=== PATIENT | female | born 1990 | race African-American/Black ===

== ENCOUNTER 2016-11-17 20:08 | Emergency (ER) ==
[2016-11-17 22:31] LABS: URINE SOURCE CLEAN CATCH
[2016-11-17 22:56] LABS: MANUAL DIFF NEEDED? NO
[2016-11-17 23:03] LABS: BILIRUBIN URINE NEGATIVE (NEGATIVE); BLOOD URINE 1+ (NEGATIVE); CLARITY CLEAR (CLEAR); COLOR YELLOW; GLUCOSE URINE NEGATIVE (NEGATIVE); LEUKOCYTES URINE TRACE (NEGATIVE); NITRITE URINE NEGATIVE (NEGATIVE); PROTEIN URINE NEGATIVE (NEGATIVE); UROBILINOGEN URINE NORMAL
[2016-11-17 23:05] LABS: URINE CULTURE PL NEEDED? YES; URINE EPITHELIAL CELLS <10 /HPF (<10); URINE RBC <10 /HPF (<10); URINE WBC <10 /HPF (<10)
[2016-11-17 23:09] LABS: AGAP 10; BUN 8 mg/dL (8-22); CALCIUM 9.5 mg/dL (8.8-10.2); CHLORIDE 99 mmol/L (98-107); COSMO 262; POTASSIUM 4.1 mmol/L (3.5-5.1); SODIUM 132 mmol/L (136-145); TCO2 23 mmol/L (25-35)
[2016-11-17] MEDS ORDERED: PHENERGAN IV ONE (23:30)
[2016-11-17] MEDS ORDERED: LOMOTIL PO ONE (23:30)
[2016-11-17] MEDS ORDERED: SODIUM CHLORIDE 0.9% INJ ONE (23:30)
[2016-11-17] MEDS ORDERED: LR 1,000 ML IV PRN (23:30)
[2016-11-17 23:52] LABS: BASO% 0.2 % (0.0-0.8); EOS# 0.25 X1000 (0.0-0.7); EOS% 3.8 % (0.0-10.0); HEMATOCRIT 35.6 % (37.0-47.0); HEMOGLOBIN 11.8 g/dL (12.0-16.0); IMM GRAN# 0.01 X1000 (0.0-0.04); IMM GRAN% 0.2 % (0.0-0.5); LYMPH# 1.52 X1000 (1.2-3.4); LYMPH% 23.2 % (20.5-51.1); MCH 27.3 PG (27-31); MCHC 33.1 g/dL (33-37); MCV 82.2 FL (81-99); MONO# 0.41 X1000 (0.11-0.59); MONO% 6.3 % (1.7-9.3); NEUT% 66.3 % (42.2-75.2); PLT 344 X1000 (130-400); RBC 4.33 XMIL (4.2-5.4)
--- NOTE | 2016-11-17 23:52 | PROVIDER DOCUMENTATION ---
HPI-General Adult - General Chief Complaint: N/V/D Stated Complaint: N,WEAKNESS,ABD PAIN-6WKS PREG Time Seen by Provider: 11/17/16 23:29 Allergies/Adverse Reactions: Patient Allergies Allergy/AdvReac Type Severity Reaction Status Date / Time No Known Allergies Allergy Verified 10/25/16 19:49 Home Medications: Balsalazide Disodium 750 mg PO TID 08/30/16 - History of Present Illness -Gen Adult Nature of Presenting Problems: 26 YOBLKF WITH HX OF COLITIS, PRESENTS TO ED WITH C/O PT STATES SHE HAS HAD N/V/ D X 1 WEEK. PT STATES SHE HAS BLOODY DIARRHEA. PT STATES THERE IS NO OTHER SICKNESS IN THE HOUSE. Location of Pain/Injury: reports: abdomen Pain Radiation: reports: no radiation Quality of Pain: reports: aching Severity: reports: moderate Onset/Duration: reports: 1 week ago Timing: reports: still present Context/Activities at Onset: reports: light activity Modifying Factors: improves with: nothing Associated Symptoms: reports: diarrhea, nausea, vomiting Similar Symptoms Previously?: No Recently seen or treated by another doctor?: No Review of Systems - Adult - REVIEW OF SYSTEMS - ADULT Constitutional: denies: chills, fever Eyes: reports: no symptoms reported Ears, Nose, Mouth & Throat: reports: no symptoms reported Cardiovascular: denies: chest pain, palpitations, syncope Respiratory: denies: cough, shortness of breath, wheezing Gastrointestinal: reports: abdominal pain, diarrhea, nausea, vomiting Genitourinary: reports: no symptoms reported Musculoskeletal: denies: back pain, neck pain Integumentary: reports: no symptoms reported Neurological: denies: dizziness/vertigo, headache/migraines, syncope Psychiatric: reports: no symptoms reported Endocrine: reports: no symptoms reported Hematologic/Lymphatic: reports: no symptoms reported Allergic/Immunologic: reports: no symptoms reported All Other Systems: Reviewed and Negative Past History - Adult - PAST MEDICAL HISTORY-ADULT Review of Records: reports: Nursing Assessment Review, Medications Reviewed Respiratory: reports: asthma 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) Psychiatric: reports: anxiety Other Conditions: reports: eczema - PRIOR SURGERIES/PROCEDURES Surgical/Procedure History: reports: , tonsillectomy - PRIOR HOSPITALIZATIONS Prior Hospitalizations: reports: for other non-related - IMMUNIZATION STATUS Childhood Immunizations: See Nurse Assessment Flu Vaccine: See Nurse Assessment - FAMILY HISTORY Family History: reviewed, not pertinent - SOCIAL HISTORY Living Situation: family Physical Exam-General - CONSTITUTIONAL General Appearance: alert, mild distress - EYES Eyes: PERRL/EOMI, pink conjunctivae - HEAD, EARS, NOSE, MOUTH & THROAT HENMT: normocephalic/atraumatic, moist mucous membranes - NECK Neck: non-tender, full range of motion, supple - RESPIRATORY Respiratory: chest non-tender, lungs clear, normal breath sounds - CARDIOVASCULAR Cardiovascular: normal peripheral pulses, regular rate, rhythm - GASTROINTESTINAL (ABDOMEN) Abdominal Exam: soft, tenderness, other (HYPERACTIVE BOWEL SOUNDS.) - LYMPHATIC Lymphatic: no adenopathy - MUSCULOSKELETAL Back Exam: normal inspection, no CVA tenderness, no vertebral tenderness Extremity: normal range of motion, non-tender - SKIN Integumentary: normal color, normal turgor, warm/dry - NEUROLOGIC Neurologic: grossly normal - PSYCHIATRIC Psych/Mental Status: oriented x 3 Progress - PLAN OF CARE/RESULTS Progress/Plan/Lab Results: Laboratory Tests 11/17/16 11/17/16 11/17/16 22:20 22:20 23:40 WBC 6.54 RBC 4.33 Hgb 11.8 L Hct 35.6 L MCV 82.2 MCH 27.3 MCHC 33.1 RDW Std Deviation 13.2 Plt Count 344 MPV 10.0 Immature Gran % (Auto) 0.2 Neut % (Auto) 66.3 Lymph % (Auto) 23.2 Spencer % (Auto) 6.3 Eos % (Auto) 3.8 Baso % (Auto) 0.2 Immature Gran # (Auto) 0.01 Neut # (Auto) 4.34 Lymph # (Auto) 1.52 Spencer # (Auto) 0.41 Eos # (Auto) 0.25 Baso # (Auto) 0.01 Sodium 132 L Potassium 4.1 Chloride 99 Carbon Dioxide 23 L Anion Gap 10 BUN 8 Creatinine 0.7 Estimated GFR/1.73 m2 > 60 BUN/Creatinine Ratio 11 Glucose 87 Calculated Osmolality 262 Calcium 9.5 Total Bilirubin Direct Bilirubin AST ALT Alkaline Phosphatase Total Protein Albumin Globulin Albumin/Globulin Ratio Urine Source CLEAN CATCH Urine Color YELLOW Urine Clarity CLEAR Urine pH 5.0 Ur Specific Red [place] 1.020 Urine Protein NEGATIVE Urine Ketones 2+(Moderate) A Urine Blood 1+ A Urine Nitrite NEGATIVE Urine Bilirubin NEGATIVE Urine Urobilinogen NORMAL Urine Microscopic RBC <10 Urine WBC TRACE A Urine Microscopic WBC <10 Ur Epithelial Cells <10 Urine Bacteria 2+ Urine Glucose NEGATIVE 11/17/16 23:40 WBC RBC Hgb Hct MCV MCH MCHC RDW Std Deviation Plt Count MPV Immature Gran % (Auto) Neut % (Auto) Lymph % (Auto) Spencer % (Auto) Eos % (Auto) Baso % (Auto) Immature Gran # (Auto) Neut # (Auto) Lymph # (Auto) Spencer # (Auto) Eos # (Auto) Baso # (Auto) Sodium Potassium Chloride Carbon Dioxide Anion Gap BUN Creatinine Estimated GFR/1.73 m2 BUN/Creatinine Ratio Glucose Calculated Osmolality Calcium Total Bilirubin 0.30 Direct Bilirubin < 0.20 AST 12 ALT 10 Alkaline Phosphatase 83 Total Protein 7.3 Albumin 4.0 Globulin 3.0 Albumin/Globulin Ratio 1.0 Urine Source Urine Color Urine Clarity Urine pH Ur Specific Red [place] Urine Protein Urine Ketones Urine Blood Urine Nitrite Urine Bilirubin Urine Urobilinogen Urine Microscopic RBC Urine WBC Urine Microscopic WBC Ur Epithelial Cells Urine Bacteria Urine Glucose Orders Category Date Time Status BASIC METABOLIC PANEL [CHEM] Stat Lab 11/17/16 23:40 Completed CBC WITH DIFF [HEME] Stat Lab 11/17/16 22:20 Completed HEPATIC FUNCTION [CHEM] Stat Lab 11/17/16 23:[address] W/POSS RFLX CULT [URINALYSIS] Stat Lab 11/17/16 22:20 Completed URINE CULTURE [RM] Routine Lab 11/17/16 23:05 Ordered Diphenoxylate/Atropine [Lomotil] Med 11/17/16 23:30 Discontinued 2 each PO NOW ONE Lactated Ringers Inj [Lr] 1,000 ml Med 11/17/16 23:30 Active IV 500 mls/hr Promethazine [Phenergan] Med 11/17/16 23:30 Discontinued 25 mg IV NOW ONE Sodium Chloride 0.9% Med 11/17/16 23:30 Discontinued 10 ml INJ NOW ONE Vital Signs - 24 hr 11/17/16 21:13 Temperature 97.7 F Pulse Rate 94 H Respiratory 18 Rate Blood Pressure 113/65 O2 Sat by Pulse 100 Oximetry Departure - Departure Time of Disposition Order: 00:47 DIAGNOSIS: Gastroenteritis Disposition: HOME 01 Certified Medical Emergency: Emergent Condition: Fair Additional Instructions: ED Follow Up Instructions: You have been treated by a care provider in the Emergency Department. These instructions are being provided to you so you can have an understanding of how to care for yourself upon discharge. Upon discharge from the Emergency Department, you are responsible for making arrangements for follow-up care by a physician of your choice. Take all prescribed medications as directed. Return to the Emergency Department immediately for any new or worsening symptoms. You may call the Physician Referral phone number at [phone] to obtain a list of Physicians who are taking new patients. Prescriptions: Diphenoxylate/Atropine [Lomotil] 1 - 2 each PO Q6H PRN PRN #20 tablet PRN Reason: Diarrhea Promethazine [Phenergan] 1 - 2 tab PO Q6H PRN PRN #18 tablet PRN Reason: Vomiting Ondansetron HCl [Zofran] 1 - 2 tab PO Q6H PRN PRN #30 tablet PRN Reason: Vomiting Referrals: Abad Riggs MD [STAFF PHYSICIAN] - None,PCP [Primary Care Provider] - Forms: Return to School/Parent Work Attestation - Scribe Verification/Attestation Scribe:: Conner Thurman Acting as Scribe for:: Marck Armstrong Scribe documention review:: This chart was documented by a scribe and accurately reflects the service the provider performed and the decisions made by the provider.
[2016-11-18 00:28] LABS: ALKALINE PHOSPHATASE 83 U/L (32-104); DIRECT BILIRUBIN < 0.20 mg/dL (0.00-0.20); GOT 12 U/L (10-30); GPT 10 U/L (10-36); TOTAL PROTEIN 7.3 g/dL (6.3-8.3)
[2016-11-18] MEDS ORDERED: BENADRYL IV ONE (00:54)
[2016-11-18 01:56] VITALS: BP 104/77
== END 2016-11-18 01:55 | disposition home or self-care (01) ==
LOC: P.ED 20:08
DX: K52.9 Noninfective gastroenteritis and colitis, unspecified (principal); R19.7 Diarrhea, unspecified; R11.2 Nausea with vomiting, unspecified; R10.9 Unspecified abdominal pain; K51.90 Ulcerative colitis, unspecified, without complications; Z79.899 Other long term (current) drug therapy
CPT/HCPCS: 80048; 80076; 81001; 85025; 87088; 96361; 96374; 96375; J1200; J2550; J7120

== ENCOUNTER 2016-11-24 14:29 | Emergency (ER) ==
[2016-11-24 14:38] VITALS: BP 103/67
[2016-11-24] MEDS ORDERED: ALBUTEROL NEB INH ONE ×2 (14:43→14:46)
--- NOTE | 2016-11-24 14:47 | PROVIDER DOCUMENTATION ---
HPI-Respiratory General - General Source: patient - History of Present Illness-Resp Severity in ED: reports: moderate Onset/Duration: reports: gradual, this morning (0500) Timing: reports: still present, constant Episode Frequency: occasional episodes Current Respiratory Medication Therapy: Initiated see nurses note Associated Symptoms: reports: cough, fever/chills (subjective fever no chills), shortness of breath, short of breath, wheezing. denies: chest pain/soreness, dizziness, flu-like symptoms, nasal congestion, nasal drainage Similar Symptoms Previously?: Yes Recently seen or treated by another doctor?: No <Yong Canales - Last Filed: 11/24/16 14:47> <Viridiana Washington - Last Filed: 11/24/16 15:50> - General Chief Complaint: Asthma Attack Stated Complaint: SOB Time Seen by Provider: 11/24/16 14:40 Allergies/Adverse Reactions: Patient Allergies Allergy/AdvReac Type Severity Reaction Status Date / Time No Known Allergies Allergy Verified 10/25/16 19:49 Home Medications: Balsalazide Disodium 750 mg PO TID 08/30/16 - History of Present Illness-Resp Nature of Presenting Problem: patient is a 26 y/o F that presents with shortness of breath, wheezing, and cough that began this morning. patient has asthma but didn't take a breathing treatment due to the fact she is and wasn't for sure how it will effect the baby. patient denies any fever/chills, abdominal pain, or chest pain. She is , she is a G 3 P 1 AB 1. (Yong Canales) Review of Systems - Adult - REVIEW OF SYSTEMS - ADULT Constitutional: denies: chills, fever Eyes: denies: blurred vision, double vision Ears, Nose, Mouth & Throat: denies: ear pain, sinus problem, throat pain, throat swelling Cardiovascular: denies: chest pain, palpitations, syncope Respiratory: reports: cough, shortness of breath, wheezing. denies: excessive sputum production Gastrointestinal: denies: hematemesis, diarrhea, nausea, vomiting Genitourinary: reports: no symptoms reported Musculoskeletal: denies: back pain, joint pain, joint swelling, neck pain Integumentary: reports: no symptoms reported Neurological: denies: dizziness/vertigo, headache/migraines Psychiatric: reports: no symptoms reported Endocrine: reports: no symptoms reported Hematologic/Lymphatic: reports: no symptoms reported Allergic/Immunologic: reports: no symptoms reported All Other Systems: Reviewed and Negative <Yong Canales - Last Filed: 11/24/16 14:47> Past History - Adult - PAST MEDICAL HISTORY-ADULT Review of Records: reports: Old Records Reviewed, Nursing Assessment Review, Medications Reviewed Respiratory: reports: asthma Gastrointestinal: reports: colitis Other Conditions: reports: eczema - PRIOR SURGERIES/PROCEDURES Surgical/Procedure History: reports: , tonsillectomy, orthopedic ( extremity) - IMMUNIZATION STATUS Childhood Immunizations: See Nurse Assessment Flu Vaccine: See Nurse Assessment - SOCIAL HISTORY Smoking: quit greater than 1 year, cigarettes Living Situation: family <Yong Canales - Last Filed: 11/24/16 14:47> - PAST MEDICAL HISTORY-ADULT Major Childhood Illnesses: reports: denies history Cardiovascular: reports: denies history Respiratory: reports: asthma 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) Obstetrical/Gynecological: reports: denies history Genitourinary: reports: denies history Musculoskeletal: reports: denies history Neurological: reports: denies history Psychiatric: reports: anxiety Endocrine/Immune: reports: denies history Other Conditions: reports: eczema - PRIOR SURGERIES/PROCEDURES Surgical/Procedure History: reports: , tonsillectomy - PRIOR HOSPITALIZATIONS Prior Hospitalizations: reports: for other non-related - IMMUNIZATION STATUS Childhood Immunizations: See Nurse Assessment Flu Vaccine: See Nurse Assessment - FAMILY HISTORY Family History: reviewed, not pertinent <Viridiana Washington - Last Filed: 11/24/16 15:50> Physical Exam-General - PHYSICAL EXAM-ADULT Initial Vital Signs Reviewed: Yes - CONSTITUTIONAL General Appearance: alert, no apparent distress - EYES Eyes: PERRL/EOMI, pink conjunctivae - HEAD, EARS, NOSE, MOUTH & THROAT HENMT: normocephalic/atraumatic, moist mucous membranes, normal ENT inspection - NECK Neck: non-tender, full range of motion, normal inspection - RESPIRATORY Respiratory: no respiratory distress, no accessory muscle use, wheezing - CARDIOVASCULAR Cardiovascular: no gallop, no murmur, tachycardia - GASTROINTESTINAL (ABDOMEN) Abdominal Exam: normal bowel sounds, non tender, soft, no organomegaly, no pulsatile mass - MUSCULOSKELETAL Back Exam: no CVA tenderness, no vertebral tenderness Extremity: normal range of motion, normal inspection, no pedal edema - SKIN Integumentary: normal color, normal turgor, warm/dry - NEUROLOGIC Neurologic: grossly normal, no motor/sensory deficits - PSYCHIATRIC Psych/Mental Status: normal mood/affect, normal thought content, normal thought process, oriented x 3 <Yong Canales - Last Filed: 11/24/16 14:47> Progress <Yong Canales - Last Filed: 11/24/16 14:47> - REASSESSMENT Reassessment #1 Time Reassessed: 15:04 (Still present after first dose, no longer wheezing after second dose. ) Status: improving <Viridiana Washington - Last Filed: 11/24/16 15:50> - PLAN OF CARE/RESULTS Progress/Plan/Lab Results: Vital Signs Temp Pulse Resp BP Pulse Ox 11/24/16 14:55 114 H 36 H 11/24/16 14:32 98.9 F 114 H 24 103/67 98 No Known Allergies Allergy (Verified 10/25/16 19:49) Balsalazide Disodium 750 mg PO TID 08/30/16 Diphenoxylate/Atropine [Lomotil] 1 - 2 each PO Q6H PRN PRN #20 tablet 11/18/16 Ondansetron HCl [Zofran] 1 - 2 tab PO Q6H PRN PRN #30 tablet 11/18/16 Promethazine [Phenergan] 1 - 2 tab PO Q6H PRN PRN #18 tablet 11/18/16 Laboratory 11/24/16 15:19 Influenza A (Rapid) NEGATIVE Influenza B (Rapid) NEGATIVE Orders Category Date Time Status INFLUENZA SCREEN PL Stat Lab 11/24/16 15:19 Completed Albuterol [Albuterol Neb] Med 11/24/16 14:43 Discontinued 2.5 mg INH NOW ONE Albuterol [Albuterol Neb] Med 11/24/16 14:46 Discontinued 2.5 mg INH NOW ONE Aerosol Treatments Routine Oth 11/24/16 14:43 Completed Aerosol Treatments Routine Oth 11/24/16 14:46 Completed Aerosol Treatments Stat Oth 11/24/16 14:43 Completed Aerosol Treatments Stat Oth 11/24/16 14:46 Completed (Viridiana Washington) Departure <Yong Canales - Last Filed: 11/24/16 14:47> - Departure Time of Disposition Order: 15:50 Certified Medical Emergency: Emergent <Viridiana Washington - Last Filed: 11/24/16 15:50> - Departure DIAGNOSIS: Asthma exacerbation Disposition: HOME 01 Condition: Stable Additional Instructions: follow up with your primary care physician and the vehicle modification technician ED Follow Up Instructions: You have been treated by a care provider in the Emergency Department. These instructions are being provided to you so you can have an understanding of how to care for yourself upon discharge. Upon discharge from the Emergency Department, you are responsible for making arrangements for follow-up care by a physician of your choice. Take all prescribed medications as directed. Return to the Emergency Department immediately for any new or worsening symptoms. You may call the Physician Referral phone number at [phone] to obtain a list of Physicians who are taking new patients. Referrals: None,PCP [Primary Care Provider] - Attestation - Scribe Verification/Attestation Scribe:: Yong Canales Acting as Scribe for:: Viridiana Washington Scribe documention review:: This chart was documented by a scribe and accurately reflects the service the provider performed and the decisions made by the provider. - Physician/ Mid-level Attestation Patient care was provided by Mid-level provider (BOW REHAIRER/PA):: Yes Mid-level provider:: Viridiana Washington Mid-level documentation review:: The Mid-level provider documentation, treatment plan and medical decision making was reviewed by the physician who agrees with all treatment and medical decision making by the MLP. <Yong Canales - Last Filed: 11/24/16 14:47> - Physician/ Mid-level Attestation Patient care was provided by Mid-level provider (BOW REHAIRER/PA):: Yes Mid-level provider:: Viridiana Washington Mid-level documentation review:: The Mid-level provider documentation, treatment plan and medical decision making was reviewed by the physician who agrees with all treatment and medical decision making by the MLP. <Viridiana Washington - Last Filed: 11/24/16 15:50> Physician Attestation
== END 2016-11-24 15:55 | disposition home or self-care (01) ==
LOC: P.ED 14:29
DX: J45.901 Unspecified asthma with (acute) exacerbation (principal); R06.02 Shortness of breath; R06.2 Wheezing; R05 Cough; R00.0 Tachycardia, unspecified; K52.9 Noninfective gastroenteritis and colitis, unspecified; Z79.899 Other long term (current) drug therapy
CPT/HCPCS: 87804; 94640; 99283

== ENCOUNTER 2017-01-17 09:40 | Emergency (ER) ==
[2017-01-17 10:17] LABS: MANUAL DIFF NEEDED? NO
[2017-01-17 10:23] LABS: BASO% 0.1 % (0.0-0.8); EOS# 0.25 X1000 (0.0-0.7); EOS% 3.7 % (0.0-10.0); HEMATOCRIT 33.4 % (37.0-47.0); HEMOGLOBIN 11.1 g/dL (12.0-16.0); IMM GRAN# 0.02 X1000 (0.0-0.04); IMM GRAN% 0.3 % (0.0-0.5); LYMPH# 1.23 X1000 (1.2-3.4); LYMPH% 18.4 % (20.5-51.1); MCH 27.2 PG (27-31); MCHC 33.2 g/dL (33-37); MCV 81.9 FL (81-99); MONO# 0.31 X1000 (0.11-0.59); MONO% 4.6 % (1.7-9.3); MPV 10.4 FL (7.4-10.4); NEUT% 72.9 % (42.2-75.2); PLT 292 X1000 (130-400); RBC 4.08 XMIL (4.2-5.4)
[2017-01-17 10:43] LABS: AGAP 11; ALBUMIN 3.5 g/dL (3.5-5.0); ALKALINE PHOSPHATASE 62 U/L (32-104); BUN 6 mg/dL (8-22); CALCIUM 9.4 mg/dL (8.8-10.2); CHLORIDE 103 mmol/L (98-107); COSMO 272; GOT 13 U/L (10-30); GPT 9 U/L (10-36); POTASSIUM 3.3 mmol/L (3.5-5.1); SODIUM 137 mmol/L (136-145); TCO2 24 mmol/L (25-35); TOTAL PROTEIN 6.3 g/dL (6.3-8.3)
[2017-01-17] MEDS ORDERED: OFIRMEV 1000 MG/ISOTONIC SOLN 100 ML IV ONE (10:44)
[2017-01-17] MEDS ORDERED: NS 1,000 ML IV ONE (10:44)
[2017-01-17] MEDS ORDERED: SODIUM CHLORIDE 0.9% INJ ONE (10:44)
[2017-01-17] MEDS ORDERED: PHENERGAN IV ONE (10:44)
[2017-01-17] MEDS ORDERED: ZOFRAN IV ONE (11:26)
[2017-01-17] MEDS ORDERED: ZOFRAN ONE (11:27)
[2017-01-17 13:08] LABS: URINE SOURCE CLEAN CATCH
[2017-01-17 13:15] LABS: BILIRUBIN URINE NEGATIVE (NEGATIVE); BLOOD URINE TRACE (NEGATIVE); CLARITY CLEAR (CLEAR); COLOR YELLOW; GLUCOSE URINE NEGATIVE (NEGATIVE); LEUKOCYTES URINE 1+ (NEGATIVE); NITRITE URINE NEGATIVE (NEGATIVE); PROTEIN URINE 1+(30 mg/dL) mg/dL (NEGATIVE); UROBILINOGEN URINE 1+(1 mg/dL)
[2017-01-17 13:25] LABS: URINE CULTURE PL NEEDED? YES; URINE EPITHELIAL CELLS >10 /HPF (<10)
--- NOTE | 2017-01-17 13:45 | PROVIDER DOCUMENTATION ---
HPI-Female /OB/Breast - General Chief Complaint: N/V/D Stated Complaint: Preg/n/v/d - abd pain Time Seen by Provider: 01/17/17 10:11 Source: reports: patient, family Allergies/Adverse Reactions: Patient Allergies Allergy/AdvReac Type Severity Reaction Status Date / Time No Known Allergies Allergy Verified 01/17/17 09:44 Home Medications: Home Medication List Medication Instructions Recorded Confirmed Last Taken Type Clotrimazole 1% Cream [Lotrimin 1% 1 applicatn TOP QHS #1 tube 01/17/17 Unknown Rx Cream] Nitrofurantoin Monohyd/M-Cryst 100 mg PO BID #14 capsule 01/17/17 Unknown Rx [Macrobid 100 mg Capsule] - History of Present Illness-Female /OB Nature of Presenting Problem: This pt, , and is currently 15wks , presents today c complaints of lower abdominal pains and cramping. she reports 1-2 episodes of vomiting but no diarrhea. She reports mild vaginal d/c but no bleeding. No fever, chills. No other issues or complaints. Location of complaint: reports: suprapubic Radiation: reports: none Quality of Pain: reports: aching, cramping Severity in ED: reports: moderate Onset/Duration: reports: last night Timing: reports: still present Vaginal Symptoms: reports: discharge Vaginal Bleeding Amount: None Urinary Symptoms: reports: no symptoms Related Symptoms: reports: abdominal pain Leakage of Fluid: none Sexual intercourse history: reports: Less Than 2 Months Ago, Single Partner Contraception: reports: none Similar Symptoms Previously?: No Recently seen or treated by another doctor?: Yes ([facility] WEIGHER) Review of Systems - Adult - REVIEW OF SYSTEMS - ADULT Constitutional: reports: no symptoms reported. denies: chills, fever Eyes: reports: no symptoms reported. denies: discharge, dry eyes Ears, Nose, Mouth & Throat: reports: no symptoms reported. denies: ear discharge, ear pain Cardiovascular: reports: no symptoms reported. denies: chest pain, edema Respiratory: reports: no symptoms reported. denies: chronic cough, cough Gastrointestinal: reports: abdominal pain, nausea, vomiting. denies: diarrhea, difficulty swallowing Genitourinary: reports: see HPI. denies: dysuria, discharge Musculoskeletal: reports: no symptoms reported. denies: bone pain, back pain Integumentary: reports: no symptoms reported. denies: hives, hair loss Neurological: reports: no symptoms reported. denies: ataxia, dizziness/vertigo Psychiatric: reports: no symptoms reported. denies: anxiety, anti-depressant use Endocrine: reports: no symptoms reported Hematologic/Lymphatic: reports: no symptoms reported Allergic/Immunologic: reports: no symptoms reported All Other Systems: Reviewed and Negative Past History - Adult - PAST MEDICAL HISTORY-ADULT Review of Records: reports: Old Records Reviewed, Nursing Assessment Review, Medications Reviewed, Social history reviewed & non-contributory. Major Childhood Illnesses: reports: denies history Cardiovascular: reports: denies history Respiratory: reports: asthma 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) Obstetrical/Gynecological: reports: denies history Genitourinary: reports: denies history Musculoskeletal: reports: denies history Neurological: reports: denies history Psychiatric: reports: anxiety Endocrine/Immune: reports: denies history Other Conditions: reports: eczema - PRIOR SURGERIES/PROCEDURES Surgical/Procedure History: reports: , tonsillectomy - PRIOR HOSPITALIZATIONS Prior Hospitalizations: reports: for other non-related - IMMUNIZATION STATUS Childhood Immunizations: See Nurse Assessment Flu Vaccine: See Nurse Assessment - FAMILY HISTORY Family History: reviewed, not pertinent Physical Exam-General - PHYSICAL EXAM-ADULT Initial Vital Signs Reviewed: Yes - CONSTITUTIONAL General Appearance: alert, mild distress - EYES Eyes: PERRL/EOMI, fundi clear, no AV nicking - HEAD, EARS, NOSE, MOUTH & THROAT HENMT: normocephalic/atraumatic, moist mucous membranes, normal ENT inspection - NECK Neck: non-tender, full range of motion, supple, normal inspection - RESPIRATORY Respiratory: chest non-tender, lungs clear, normal breath sounds, no pleuratic chest pain, no respiratory distress, no accessory muscle use. negative: respiratory distress, decreased breath sounds, accessory muscle use - CARDIOVASCULAR Cardiovascular: normal peripheral pulses, no edema, no gallop, no JVD, no murmur , tachycardia. negative: JVD, bradycardia - GASTROINTESTINAL (ABDOMEN) Abdominal Exam: normal bowel sounds, soft, no organomegaly, no pulsatile mass, tenderness (suprapubic). negative: abdominal bruit, abnormal bowel sounds, distended, guarding, rigid, rebound, McBurney's point tenderness, Sanders's sign - GENITOURINARY Female Genitalia/Pelvic Exam: no masses, discharge (minimal, white). negative: active bleeding, blood, cervicitis, herpes-like ulcerations, lesions, mass - MUSCULOSKELETAL Back Exam: normal inspection, no CVA tenderness, no vertebral tenderness Extremity: normal range of motion, non-tender, normal gait, normal inspection - SKIN Integumentary: normal color, normal turgor, warm/dry - NEUROLOGIC Neurologic: grossly normal, no motor/sensory deficits - PSYCHIATRIC Psych/Mental Status: normal mood/affect, normal thought content, normal thought process, oriented x 3 Progress - PLAN OF CARE/RESULTS Progress/Plan/Lab Results: Laboratory Tests 01/17/17 01/17/17 01/17/17 10:12 10:12 10:12 WBC 6.69 RBC 4.08 L Hgb 11.1 L Hct 33.4 L MCV 81.9 MCH 27.2 MCHC 33.2 RDW Std Deviation 14.9 H Plt Count 292 MPV 10.4 Immature Gran % (Auto) 0.3 Neut % (Auto) 72.9 Lymph % (Auto) 18.4 L Stearns % (Auto) 4.6 Eos % (Auto) 3.7 Baso % (Auto) 0.1 Immature Gran # (Auto) 0.02 Neut # (Auto) 4.87 Lymph # (Auto) 1.23 Stearns # (Auto) 0.31 Eos # (Auto) 0.25 Baso # (Auto) 0.01 Sodium 137 Potassium 3.3 L Chloride 103 Carbon Dioxide 24 L Anion Gap 11 BUN 6 L Creatinine 0.6 Estimated GFR/1.73 m2 > 60 BUN/Creatinine Ratio 10 Glucose 105 H Calculated Osmolality 272 Calcium 9.4 Total Bilirubin 0.20 AST 13 ALT 9 L Alkaline Phosphatase 62 Total Protein 6.3 Albumin 3.5 Globulin 3.0 Albumin/Globulin Ratio 1.0 Ser , Semi-Qnt 87726.0 Urine Source Urine Color Urine Clarity Urine pH Ur Specific [place] Urine Protein Urine Ketones Urine Blood Urine Nitrite Urine Bilirubin Urine Urobilinogen Urine Microscopic RBC Urine WBC Urine Microscopic WBC Ur Epithelial Cells Urine Bacteria Urine Yeast Urine Glucose 01/17/17 13:03 WBC RBC Hgb Hct MCV MCH MCHC RDW Std Deviation Plt Count MPV Immature Gran % (Auto) Neut % (Auto) Lymph % (Auto) Stearns % (Auto) Eos % (Auto) Baso % (Auto) Immature Gran # (Auto) Neut # (Auto) Lymph # (Auto) Stearns # (Auto) Eos # (Auto) Baso # (Auto) Sodium Potassium Chloride Carbon Dioxide Anion Gap BUN Creatinine Estimated GFR/1.73 m2 BUN/Creatinine Ratio Glucose Calculated Osmolality Calcium Total Bilirubin AST ALT Alkaline Phosphatase Total Protein Albumin Globulin Albumin/Globulin Ratio Ser , Semi-Qnt Urine Source CLEAN CATCH Urine Color YELLOW Urine Clarity CLEAR Urine pH 7.0 Ur Specific [place] 1.020 Urine Protein 1+(30 mg/dL) A Urine Ketones 3+(Large) A Urine Blood TRACE Urine Nitrite NEGATIVE Urine Bilirubin NEGATIVE Urine Urobilinogen 1+(1 mg/dL) Urine Microscopic RBC Not Reportable Urine WBC 1+ A Urine Microscopic WBC 10-20 A Ur Epithelial Cells >10 A Urine Bacteria 3+ Urine Yeast PRESENT Urine Glucose NEGATIVE Orders Category Date Time Status Saline Loc NOW Care 01/17/17 10:11 Active US OBS COMPLETE > 14 WKS [] Stat Exams 01/17/17 09:55 Taken CBC WITH DIFF [HEME] Stat Lab 01/17/17 10:12 Completed CHLAMYDIA AND GC BY PCR URINE [CUBA] Stat Lab 01/17/17 13:03 Received COMPREHENSIVE METABOLIC PANEL [CHEM] Stat Lab 01/17/17 10:12 Completed QUANT TEST Stat Lab 01/17/17 10:12 Completed RHOGAM WORKUP [BBK] Stat Lab 01/17/17 11:[address] W/POSS RFLX CULT [URINALYSIS] Stat Lab 01/17/17 13:03 Completed URINE CULTURE [RM] Routine Lab 01/17/17 13:25 Ordered 0.9% Sodium Chloride Inj [Ns] 1,000 ml Med 01/17/17 10:44 Discontinued IV 999 mls/hr Acetaminophen [Ofirmev 1000 mg/Isotonic Soln] 100 ml Med 01/17/17 10:44 Discontinued IV NOW Ondansetron [Zofran] Med 01/17/17 11:27 Discontinued 4 mg .ROUTE .STK-MED ONE Ondansetron [Zofran] Med 01/17/17 11:26 Discontinued 4 mg IV NOW ONE Promethazine [Phenergan] Med 01/17/17 10:44 Discontinued 12.5 mg IV NOW ONE Sodium Chloride 0.9% Med 01/17/17 10:44 Discontinued 10 ml INJ NOW ONE Vital Signs Temp Pulse Resp BP Pulse Ox 01/17/17 11:30 103 H 20 105/67 100 01/17/17 09:41 97.9 F 110 H 18 104/69 97 No Known Allergies Allergy (Verified 01/17/17 09:44) No Home Medications 01/17/17 Laboratory 01/17/17 01/17/17 01/17/17 13:03 10:12 10:12 WBC 6.69 RBC 4.08 L Hgb 11.1 L Hct 33.4 L MCV 81.9 MCH 27.2 MCHC 33.2 RDW Std Deviation 14.9 H Plt Count 292 MPV 10.4 Immature Gran % (Auto) 0.3 Neut % (Auto) 72.9 Lymph % (Auto) 18.4 L Stearns % (Auto) 4.6 Eos % (Auto) 3.7 Baso % (Auto) 0.1 Immature Gran # (Auto) 0.02 Neut # (Auto) 4.87 Lymph # (Auto) 1.23 Stearns # (Auto) 0.31 Eos # (Auto) 0.25 Baso # (Auto) 0.01 Sodium 137 Potassium 3.3 L Chloride 103 Carbon Dioxide 24 L Anion Gap 11 BUN 6 L Creatinine 0.6 Estimated GFR/1.73 m2 > 60 BUN/Creatinine Ratio 10 Glucose 105 H Calculated Osmolality 272 Calcium 9.4 Total Bilirubin 0.20 AST 13 ALT 9 L Alkaline Phosphatase 62 Total Protein 6.3 Albumin 3.5 Globulin 3.0 Albumin/Globulin Ratio 1.0 Ser , Semi-Qnt Urine Source CLEAN CATCH Urine Color YELLOW Urine Clarity CLEAR Urine pH 7.0 Ur Specific [place] 1.020 Urine Protein 1+(30 mg/dL) A Urine Ketones 3+(Large) A Urine Blood TRACE Urine Nitrite NEGATIVE Urine Bilirubin NEGATIVE Urine Urobilinogen 1+(1 mg/dL) Urine Microscopic RBC Not Reportable Urine WBC 1+ A Urine Microscopic WBC 10-20 A Ur Epithelial Cells >10 A Urine Bacteria 3+ Urine Yeast PRESENT Urine Glucose NEGATIVE 01/17/17 10:12 WBC RBC Hgb Hct MCV MCH MCHC RDW Std Deviation Plt Count MPV Immature Gran % (Auto) Neut % (Auto) Lymph % (Auto) Stearns % (Auto) Eos % (Auto) Baso % (Auto) Immature Gran # (Auto) Neut # (Auto) Lymph # (Auto) Stearns # (Auto) Eos # (Auto) Baso # (Auto) Sodium Potassium Chloride Carbon Dioxide Anion Gap BUN Creatinine Estimated GFR/1.73 m2 BUN/Creatinine Ratio Glucose Calculated Osmolality Calcium Total Bilirubin AST ALT Alkaline Phosphatase Total Protein Albumin Globulin Albumin/Globulin Ratio Ser , Semi-Qnt 43309.0 Urine Source Urine Color Urine Clarity Urine pH Ur Specific [place] Urine Protein Urine Ketones Urine Blood Urine Nitrite Urine Bilirubin Urine Urobilinogen Urine Microscopic RBC Urine WBC Urine Microscopic WBC Ur Epithelial Cells Urine Bacteria Urine Yeast Urine Glucose Pt is pain free and is feeling much better. Will tx and have her f/u c her OB/ CLAIMS VICE PRESIDENT. She has an appointment tomorrow. she and her family are in agreement. - ULTRASOUND (By Radiology) 1 US Study: Pelvic US Results: 15w4d normal IUP; FHR 153 Departure - Departure Time of Disposition Order: 13:44 DIAGNOSIS: Abdominal pain affecting , UTI (urinary tract infection) during , Vaginal yeast infection Disposition: HOME 01 Certified Medical Emergency: Emergent Condition: Good Additional Instructions: Take medication as prescribed. Follow up with your LORRY WEIGHER this week as scheduled. Return to the ER for any new or worsening symptoms. ED Follow Up Instructions: You have been treated by a care provider in the Emergency Department. These instructions are being provided to you so you can have an understanding of how to care for yourself upon discharge. Upon discharge from the Emergency Department, you are responsible for making arrangements for follow-up care by a physician of your choice. Take all prescribed medications as directed. Return to the Emergency Department immediately for any new or worsening symptoms. You may call the Physician Referral phone number at [phone] to obtain a list of Physicians who are taking new patients. Prescriptions: Clotrimazole 1% Cream [Lotrimin 1% Cream] 1 applicatn TOP QHS #1 tube Nitrofurantoin Monohyd/M-Cryst [Macrobid 100 mg Capsule] 100 mg PO BID #14 capsule Attestation - Physician/ ANGELA Attestation Patient care was provided by Advanced Practice Provider:: Yes Advanced Practice Provider:: Messi Albert Advanced Practice Provider documentation review:: The Mid-level provider documentation, treatment plan and medical decision making was reviewed by the physician who agrees with all treatment and medical decision making by the P.
[2017-01-17] MEDS ORDERED: PHENERGAN PO ONE (13:49)
--- NOTE | 2017-01-17 13:58 | Diag Imaging Result Document ---
PROCEDURE NAME: US OBS COMPLETE > 14 WKS - 01/17/2017 TRANSVAGINAL PELVIC ULTRASOUND: FINDINGS: There is an intrauterine with an estimated gestational age of 15 weeks 4 days plus or minus 8 days. heart rate is present at 153 beats per minute. No focal abnormality identified. The cervix is closed. Neither ovary is identified. No adnexal mass. No free fluid. The placenta is anterior. IMPRESSION: Intrauterine with an estimated gestational age of 15 weeks 4 days with heart rate of 153 beats per minute. A preliminary report was given at 12:17 p.m.
[2017-01-17 14:41] VITALS: BP 110/68
== END 2017-01-17 13:40 | disposition home or self-care (01) ==
LOC: P.ED 09:40
DX: O23.42 Unspecified infection of urinary tract in pregnancy, second trimester (principal); B37.3 Candidiasis of vulva and vagina; O98.812 Other maternal infectious and parasitic diseases complicating pregnancy, second trimester; O21.0 Mild hyperemesis gravidarum; Z3A.15 15 weeks gestation of pregnancy; O26.892 Other specified pregnancy related conditions, second trimester; R10.30 Lower abdominal pain, unspecified; R00.0 Tachycardia, unspecified; N89.8 Other specified noninflammatory disorders of vagina
CPT/HCPCS: 36415; 76805; 80053; 81001; 84702; 85025; 87088; 87491; 87591; 96361; 96374; 96375; J0131; J2405; J2550; J7030

== ENCOUNTER 2017-01-28 22:58 | Emergency (ER) ==
--- NOTE | 2017-01-29 01:17 | PROVIDER DOCUMENTATION ---
HPI-Female /OB/Breast - General Chief Complaint: Female Stated Complaint: 16 WKS-SPOTTING,PRESSURE Time Seen by Provider: 01/29/17 01:03 Source: reports: patient Allergies/Adverse Reactions: Patient Allergies Allergy/AdvReac Type Severity Reaction Status Date / Time No Known Allergies Allergy Verified 01/17/17 09:44 Home Medications: Home Medication List Medication Instructions Recorded Confirmed Last Taken Type Clotrimazole 1% Cream [Lotrimin 1% 1 applicatn TOP QHS #1 tube 01/17/17 Unknown Rx Cream] Nitrofurantoin Monohyd/M-Cryst 100 mg PO BID #14 capsule 01/17/17 Unknown Rx [Macrobid 100 mg Capsule] Nitrofurantoin Monohyd/M-Cryst 100 mg PO BID #14 capsule 01/29/17 Unknown Rx [Macrobid 100 mg Capsule] - History of Present Illness-Female /OB Nature of Presenting Problem: 26 yof 16 weeks c/o very light spotting in clothes and a little blood on toilet paper. Pt also has some pressure when sitting. Pt has been seeing her OB as scheduled and already had one normal ultrasound with them. Does patient report she is ?: Yes Location of complaint: reports: LLQ, vaginal Radiation: reports: none Quality of Pain: reports: pressure Severity in ED: reports: mild Onset/Duration: reports: 4-6 hours ago Timing: reports: still present, gone now Context/Activities at Onset: reports: light activity Vaginal Symptoms: reports: abnormal bleeding Vaginal Bleeding Amount: Spotting Urinary Symptoms: reports: no symptoms Related Symptoms: reports: vaginal bleeding, abdominal pain Leakage of Fluid: none Sexual intercourse history: reports: Greater Than 2 Months Ago Modifying Factors: improves with: nothing Associated Symptoms: reports: denies symptoms Similar Symptoms Previously?: No Recently seen or treated by another doctor?: No Review of Systems - Adult - REVIEW OF SYSTEMS - ADULT Constitutional: reports: see HPI. denies: no symptoms reported, chills, fever, fatique, night sweats, weight gain, weight loss, other Eyes: reports: no symptoms reported. denies: see HPI, discharge, dry eyes, decreased vision, blurred vision, double vision, eye pain, redness, other Ears, Nose, Mouth & Throat: reports: no symptoms reported. denies: see HPI, ear discharge, ear pain, hearing loss, tinnitus, epistaxis, sinus problem, nose pain, loose teeth, mouth/dental pain, mouth swelling, hoarseness, throat pain, throat swelling, other Cardiovascular: reports: no symptoms reported. denies: see HPI, chest pain, edema, heart murmur, irregular heart rate, orthopnea, palpitations, poor circulation, PND, syncope, other Respiratory: reports: no symptoms reported. denies: see HPI, chronic cough, cough, dyspnea on exertion, excessive sputum production, hemoptysis, pleurisy, shortness of breath, wheezing, other Gastrointestinal: reports: see HPI, abdominal pain. denies: no symptoms reported, hematemesis, constipation, diarrhea, difficulty swallowing, frequent heartburn, nausea, poor appetite, rectal bleeding, vomiting, other Genitourinary: reports: no symptoms reported. denies: see HPI, dysuria, discharge, frequency, flank pain, frequent UTI's, hematuria, hesitency, incontinence, urinary retention, urgency, other All Other Systems: Reviewed and Negative Past History - Adult - PAST MEDICAL HISTORY-ADULT Review of Records: reports: Old Records Reviewed, Nursing Assessment Review, Medications Reviewed, Social history reviewed & non-contributory. Major Childhood Illnesses: reports: denies history Cardiovascular: reports: denies history Respiratory: reports: asthma 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) Obstetrical/Gynecological: reports: denies history Genitourinary: reports: denies history Musculoskeletal: reports: denies history Neurological: reports: denies history Psychiatric: reports: anxiety Endocrine/Immune: reports: denies history Other Conditions: reports: eczema - PRIOR SURGERIES/PROCEDURES Surgical/Procedure History: reports: , tonsillectomy - PRIOR HOSPITALIZATIONS Prior Hospitalizations: reports: for other non-related - IMMUNIZATION STATUS Childhood Immunizations: See Nurse Assessment Flu Vaccine: See Nurse Assessment - FAMILY HISTORY Family History: reviewed, not pertinent Physical Exam-General - PHYSICAL EXAM-ADULT Initial Vital Signs Reviewed: Yes - CONSTITUTIONAL General Appearance: appears well, alert, no apparent distress. negative: mild distress, moderate distress, severe distress, cachetic, obese, thin, anxious, lethargic, slow to respond, obtunded, combative, other - EYES Eyes: PERRL/EOMI, pink conjunctivae. negative: fundi clear, no AV nicking, anisocoria, conjuctival exudate, EOM palsy, meningismus, pale conjunctivae, photophobia, sclera injected, scleral icterus, subconjunctival hemorrhage, sunken eyes, other - HEAD, EARS, NOSE, MOUTH & THROAT HENMT: normocephalic/atraumatic, moist mucous membranes, normal ENT inspection, TMs normal, pharynx normal. negative: angioedema, dental decay, hearing deficit , pharyngeal erythema, tonsillar exudate, TM abnormal, TM obscurred by cerumen, frontal tenderness, maxillary tenderness, other - NECK Neck: non-tender, full range of motion, supple, normal inspection. negative: Brudzinski's sign, carotid bruit, C-spine tenderness, limited range of motion, lymphadenopathy, meningismus, trachial deviation, tender lateral, tender midline , thyromegaly, other - RESPIRATORY Respiratory: chest non-tender, lungs clear, normal breath sounds, no pleuratic chest pain, no respiratory distress, no accessory muscle use. negative: respiratory distress, decreased breath sounds, accessory muscle use, crackles, rales, rhonchi, stridor, wheezing, dull on percussion, prolonged expiration, pain on inspiration, plerual rub, retractions, splinting, decreased rate, increased rate, crepitus, other - CARDIOVASCULAR Cardiovascular: normal peripheral pulses, regular rate, rhythm, no edema, no gallop, no JVD, no murmur. negative: JVD, bradycardia, tachycardia, diastolic murmur, systolic murmur, gallop/S3, gallop/S4, extra beats, friction rub, irregularly irregular, PMI displaced laterally, other - GASTROINTESTINAL (ABDOMEN) Abdominal Exam: normal bowel sounds, non tender, soft, no organomegaly, no pulsatile mass. negative: abdominal bruit, abnormal bowel sounds, distended, guarding, rigid, rebound, tenderness, hernia, mass, hepatomegaly, spleenomegaly , McBurney's point tenderness, Sanders's sign, obturator sign, prominent aortic pulsations, psoas, Rovsing's sign, other - GENITOURINARY Female Genitalia/Pelvic Exam: deferred - LYMPHATIC Lymphatic: no adenopathy - MUSCULOSKELETAL Back Exam: normal inspection, no CVA tenderness, no vertebral tenderness Extremity: normal range of motion, non-tender, normal gait, normal inspection, no pedal edema, no calf tenderness, normal capillary refill, pelvis stable. negative: abnormal NV exam, calf tenderness, deformity, erythema, inflammation, joint effusion, pulse deficit, pedal edema, slow capillary refill, swelling, tenderness, other - SKIN Integumentary: normal color, normal turgor, warm/dry - NEUROLOGIC Neurologic: grossly normal - PSYCHIATRIC Psych/Mental Status: oriented x 3 Progress - PLAN OF CARE/RESULTS Progress/Plan/Lab Results: Laboratory Tests 01/29/17 01:10 Urine Source Cancelled Urine Color YELLOW Urine Clarity CLEAR Urine Turbidity Cancelled Urine pH 6.0 Ur Specific [place] 1.020 Urine Protein NEGATIVE Ur Glucose (Stick) Cancelled Urine Ketones NEGATIVE Ur Ketones (Stick) Cancelled Urine Blood NEGATIVE Urine Nitrite NEGATIVE Urine Bilirubin NEGATIVE Urine Urobilinogen NORMAL Urobilinogen Dipstick Cancelled Urine Leukocytes Cancelled Urine WBC (Auto) Cancelled Urine RBC (Auto) Cancelled U Epithel Cells (Auto) Cancelled Urine Bacteria (Auto) Cancelled Urine Microscopic RBC <10 Urine WBC NEGATIVE Urine Microscopic WBC <10 Ur Epithelial Cells <10 Urine Bacteria 1+ Urine Glucose NEGATIVE Orders Category Date Time Status UA NIMS W/REFLEX CULT PL [URINALYSIS] Stat Lab 01/29/17 01:10 Completed Nitrofurantoin [place]/Macrocryst [Macrobid] Med 01/29/17 01:54 Once 100 mg PO NOW ONE Vital Signs Temp Pulse Resp BP Pulse Ox 01/28/17 23:26 98.4 F 103 H 18 117/76 100 No Known Allergies Allergy (Verified 01/17/17 09:44) Clotrimazole 1% Cream [Lotrimin 1% Cream] 1 applicatn TOP [facility] #1 tube 01/17/17 Nitrofurantoin Monohyd/M-Cryst [Macrobid 100 mg Capsule] 100 mg PO BID #14 capsule 01/17/17 Laboratory 01/29/17 01:10 Urine Source Cancelled Urine Color YELLOW Urine Clarity CLEAR Urine Turbidity Cancelled Urine pH 6.0 Ur Specific [place] 1.020 Urine Protein NEGATIVE Ur Glucose (Stick) Cancelled Urine Ketones NEGATIVE Ur Ketones (Stick) Cancelled Urine Blood NEGATIVE Urine Nitrite NEGATIVE Urine Bilirubin NEGATIVE Urine Urobilinogen NORMAL Urobilinogen Dipstick Cancelled Urine Leukocytes Cancelled Urine WBC (Auto) Cancelled Urine RBC (Auto) Cancelled U Epithel Cells (Auto) Cancelled Urine Bacteria (Auto) Cancelled Urine Microscopic RBC <10 Urine WBC NEGATIVE Urine Microscopic WBC <10 Ur Epithelial Cells <10 Urine Bacteria 1+ Urine Glucose NEGATIVE Departure - Departure Time of Disposition Order: 01:55 DIAGNOSIS: UTI (urinary tract infection) during Disposition: HOME 01 Certified Medical Emergency: Emergent Condition: Stable Additional Instructions: Call OB first thing this morning to schedule follow up. ED Follow Up Instructions: You have been treated by a care provider in the Emergency Department. These instructions are being provided to you so you can have an understanding of how to care for yourself upon discharge. Upon discharge from the Emergency Department, you are responsible for making arrangements for follow-up care by a physician of your choice. Take all prescribed medications as directed. Return to the Emergency Department immediately for any new or worsening symptoms. You may call the Physician Referral phone number at [phone] to obtain a list of Physicians who are taking new patients. Prescriptions: Nitrofurantoin Monohyd/M-Cryst [Macrobid 100 mg Capsule] 100 mg PO BID #14 capsule Referrals: None,PCP [Primary Care Provider] - Attestation - Physician/ ANGELA Attestation Patient care was provided by Advanced Practice Provider:: Yes Advanced Practice Provider:: Lai Sapp Advanced Practice Provider documentation review:: The Mid-level provider documentation, treatment plan and medical decision making was reviewed by the physician who agrees with all treatment and medical decision making by the MLP. Physician Attestation - Physician Attestation I, the provider, attest to the following statement:: Nito Onofre Physician documentation Attestation:: This documentation recorded by the scribe accurately reflects the service I personally performed and the decisions made by me.
[2017-01-29 01:52] LABS: BILIRUBIN URINE NEGATIVE (NEGATIVE); BLOOD URINE NEGATIVE (NEGATIVE); CLARITY CLEAR (CLEAR); COLOR YELLOW; GLUCOSE URINE NEGATIVE (NEGATIVE); LEUKOCYTES URINE NEGATIVE (NEGATIVE); NITRITE URINE NEGATIVE (NEGATIVE); PROTEIN URINE NEGATIVE (NEGATIVE); UROBILINOGEN URINE NORMAL
[2017-01-29 01:53] LABS: URINE CULTURE PL NEEDED? NO
[2017-01-29 01:54] LABS: URINE EPITHELIAL CELLS <10 /HPF (<10); URINE RBC <10 /HPF (<10); URINE SOURCE CLEAN CATCH; URINE WBC <10 /HPF (<10)
[2017-01-29] MEDS ORDERED: MACROBID PO ONE (01:54)
[2017-01-29 03:05] VITALS: BP 115/077
== END 2017-01-29 03:05 | disposition home or self-care (01) ==
LOC: P.ED 22:58
DX: O23.42 Unspecified infection of urinary tract in pregnancy, second trimester (principal); Z3A.16 16 weeks gestation of pregnancy; O26.891 Other specified pregnancy related conditions, first trimester; R10.32 Left lower quadrant pain; R10.2 Pelvic and perineal pain; K51.90 Ulcerative colitis, unspecified, without complications
CPT/HCPCS: 81001

== ENCOUNTER 2017-07-05 05:04 | Inpatient (IN) ==
--- NOTE | 2017-07-04 08:46 | HISTORY AND PHYSICAL ---
ADMITTING PHYSICIAN: Santosh Antoine MD. ADMITTING DIAGNOSIS: Term , for repeat section. SUMMARY: Ms. Elam is a 27-year-old, 3, para 1-0-1-1 who is at term gestation. Her blood type is A positive. Rubella immune. Hepatitis B surface antigen, HIV, and group B strep are negative. She does have sickle trait. Her first ended in a section. She is now at term gestation and is requesting a repeat . She does not desire tubal sterilization. She is therefore being admitted for repeat . PAST MEDICAL HISTORY: Patient has had previous C section. She has had tonsils and adenoids removed. She has had right knee arthroscopic surgery. She has a history of ulcerative colitis. She is sickle trait positive. CURRENT MEDICATIONS: vitamins. ALLERGIES: None. PHYSICAL EXAMINATION: GENERAL: Shows a well-developed, well-nourished female. VITAL SIGNS: Stable. She is afebrile. CARDIOVASCULAR: Regular rate and rhythm without murmurs, rubs, gallops. PULMONARY: Clear. BREASTS: No masses. ABDOMEN: Gravid. PELVIC: Cervix is closed. EXTREMITIES: There is 1+ edema. IMPRESSION: Term , for repeat section. PLAN: We will proceed with repeat . Risks, benefits, possible complications, and obstetrical indications have been discussed. cc: Santosh Antoine MD
[2017-07-05] MEDS ORDERED: KEFZOL 1 GM/D5W 1 GM/50 ML IVPB IV PRN (05:07)
[2017-07-05] MEDS ORDERED: SODIUM CHLORIDE 0.9% INJ ONE (05:10)
[2017-07-05] MEDS ORDERED: PEPCID IV ONE (05:10)
[2017-07-05] MEDS ORDERED: BICITRA PO ONE (05:10)
[2017-07-05] MEDS: LR 1,000 ML IV SCH ×2 (06:05→06:48)
[2017-07-05 06:32] LABS: URINE SOURCE VOIDED
[2017-07-05 06:33] LABS: MANUAL DIFF NEEDED? NO
[2017-07-05 06:37] LABS: BASO% 0.2 % (0.0-0.8); EOS# 0.98 X1000 (0.0-0.7); EOS% 17.1 % (0.0-10.0); HEMATOCRIT 32.1 % (37.0-47.0); HEMOGLOBIN 10.5 g/dL (12.0-16.0); IMM GRAN# 0.01 X1000 (0.0-0.04); IMM GRAN% 0.2 % (0.0-0.5); LYMPH# 1.03 X1000 (1.2-3.4); MCH 26.7 PG (27-31); MCHC 32.7 g/dL (33-37); MCV 81.7 FL (81-99); MONO# 0.37 X1000 (0.11-0.59); MONO% 6.5 % (1.7-9.3); MPV 10.8 FL (7.4-10.4); PLT 280 X1000 (130-400); RBC 3.93 XMIL (4.2-5.4)
[2017-07-05 06:44] LABS: BILIRUBIN URINE NEGATIVE (NEGATIVE); BLOOD URINE NEGATIVE (NEGATIVE); CLARITY SL. CLOUDY (CLEAR); COLOR YELLOW; GLUCOSE URINE NEGATIVE (NEGATIVE); LEUKOCYTES URINE NEGATIVE (NEGATIVE); NITRITE URINE NEGATIVE (NEGATIVE); PROTEIN URINE NEGATIVE (NEGATIVE); UR AMPHETAMINES QUAL NONE DETECTED (NONE DETECT); UR BARBITUATES QUAL NONE DETECTED (NONE DETECT); UR BENZODIAZEPIN QUAL NONE DETECTED (NONE DETECT); UR CANNABINOIDS QUAL NONE DETECTED (NONE DETECT); UR COCAINE QUAL NONE DETECTED (NONE DETECT); UR MDMA QUAL NONE DETECTED (NONE DETECT); UR METHADONE QUAL NONE DETECTED (NONE DETECT); UR METHAMPHETAMINE QUAL NONE DETECTED (NONE DETECT); UR OPIATES QUAL NONE DETECTED (NONE DETECT); UR OXYCODONE QUAL NONE DETECTED (NONE DETECT); UR PCP QUAL NONE DETECTED (NONE DETECT); UR TCA QUAL NONE DETECTED (NONE DETECT); UROBILINOGEN URINE NORMAL
[2017-07-05] MEDS ORDERED: TORADOL ONE (06:46)
[2017-07-05] MEDS ORDERED: ZOFRAN ONE (06:46)
[2017-07-05] MEDS ORDERED: PITOCIN ONE (06:46)
[2017-07-05] MEDS ORDERED: DURAMORPH ONE (07:04)
[2017-07-05] MEDS ORDERED: NEO-SYNEPHRINE ONE (07:51)
[2017-07-05] MEDS ORDERED: PITOCIN 20 UNITS/LR 20 UNITS/1,000 ML IV.SOLN ONE (07:51)
[2017-07-05] MEDS ORDERED: ROBINUL ONE (07:51)
[2017-07-05] MEDS ORDERED: PERCOCET-5 PO PRN (08:32)
[2017-07-05] MEDS ORDERED: CYTOTEC PO PRN (08:32)
[2017-07-05] MEDS ORDERED: NORCO-5 PO PRN (08:32)
[2017-07-05] MEDS ORDERED: HYDROXYZINE PO PRN (08:32)
[2017-07-05] MEDS ORDERED: HYDROXYZINE IM PRN (08:32)
[2017-07-05] MEDS ORDERED: MYLICON PO PRN (08:32)
[2017-07-05] MEDS ORDERED: DEMEROL PO PRN ×2 (08:32)
[2017-07-05] MEDS ORDERED: NORCO-10 PO PRN (08:32)
[2017-07-05] MEDS ORDERED: AMBIEN PO PRN (08:32)
[2017-07-05] MEDS ORDERED: PITOCIN 20 UNITS/LR 20 UNITS/1,000 ML IV.SOLN IV ONE (08:32)
[2017-07-05] MEDS ORDERED: PHENERGAN IM PRN (08:32)
[2017-07-05] MEDS ORDERED: PITOCIN IM PRN (08:32)
[2017-07-05] MEDS ORDERED: DEMEROL IM PRN (08:32)
[2017-07-05] MEDS ORDERED: DULCOLAX PR PRN (08:32)
[2017-07-05] MEDS ORDERED: M-M-R II VACCINE SUBQ ONE (08:32)
[2017-07-05] MEDS ORDERED: BOOSTRIX VACCINE IM ONE (08:32)
[2017-07-05] MEDS ORDERED: NARCAN INJ PRN (09:08)
[2017-07-05] MEDS ORDERED: ZOFRAN IV PRN ×2 (09:08)
[2017-07-05] MEDS ORDERED: ZOFRAN ODT PO PRN (09:08)
[2017-07-05] MEDS ORDERED: BENADRYL IV PRN (09:08)
[2017-07-05] MEDS ORDERED: TORADOL IV PRN (09:09)
--- NOTE | 2017-07-05 09:56 | OPERATIVE NOTE ---
PROCEDURE DATE: 07/05/2017 SURGEON: Santosh Antoine MD. ROOM SERVICE ATTENDANT: JODEE Hall. ANESTHESIA: Spinal. OPERATION PERFORMED: Repeat low transverse . PREOPERATIVE DIAGNOSES: 1. Term . 2. Previous , requesting repeat . POSTOPERATIVE DIAGNOSES: 1. Term . 2. Previous , requesting repeat . FINDINGS: At 0727, a 6 pound 9 ounce male infant was delivered in a vertex presentation. There was a loose nuchal cord x1. Apgars were 9 at 1 minute and 10 at 5 minutes. OPERATIVE SUMMARY: Ms. Elam was taken back to the operating room, where spinal anesthetic was placed. Then placed in supine position with left lateral tilt. The abdomen was prepped and draped in usual fashion. A William catheter was in the urinary bladder. Once satisfactory conduction anesthesia was demonstrated, a repeat Pfannenstiel incision was made. This incision was taken down to the fascia and the fascia was excised transversely. The underlying rectus muscles were bluntly and sharply dissected free. The rectus muscle was in the midline. The peritoneum was entered. Lower uterine segment was identified, and a bladder flap was created. Low transverse incision was made across the myometrium. This incision was extended laterally using digital pressure. Membranes were ruptured revealing clear fluid. The was vertex, delivered through this incision, a loose nuchal cord was reduced. The shoulders and body delivered without complications. Cord was clamped and cut. The oropharynx was bulb suctioned. The infant was then handed to the nurses for further care and evaluation. Cord blood was obtained. Placenta was manually removed. The uterus delivered on abdominal wall and explored. All membrane fragments were removed. The myometrium was then reapproximated using a running #1 chromic interlocking suture, followed by several [id number] chromic sutures for complete hemostasis across the suture line. The uterus was placed back in pelvic cavity. Uterine incision was reexamined and found to be hemostatic. First sponge, instrument, needle count report was correct. The peritoneum was closed using a running chromic suture. Second sponge, instrument, needle count was correct. The fascia was closed using running Vicryl sutures x2. The final sponge instrument and needle count report was correct as the subcutaneous tissue was reapproximated using a running 3-0 Vicryl suture and the skin edges were reapproximated using a 4- 0 Monocryl suture. Blood loss estimated at 500 mL. There no complications. The patient went to recovery room in stable condition. cc: Santosh Antoine MD
[2017-07-05] MEDS: PRECARE PO SCH (10:10)
[2017-07-05] MEDS: MYLICON PO SCH ×4 (10:10→20:53)
[2017-07-05] MEDS ORDERED: LIALDA PO SCH ×2 (10:15→15:55)
[2017-07-05] MEDS: LOPRESSOR PO SCH ×2 (10:45→20:53)
[2017-07-05] MEDS: TORADOL IV SCH ×3 (11:48→20:53)
[2017-07-05] MEDS: PITOCIN 10 UNITS/LR 10 UNIT/1,000 ML IV.SOLN IV SCH ×2 (15:27→22:42)
[2017-07-05] MEDS: MORPHINE IV PRN ×2 (15:30→22:27)
[2017-07-05] MEDS: LIALDA PO SCH (17:02)
[2017-07-05] MEDS: PERICOLACE PO SCH (20:53)
[2017-07-06] MEDS: TORADOL IV SCH (02:34)
[2017-07-06] MEDS ORDERED: LR 1,000 ML ONE (06:22)
[2017-07-06 06:25] LABS: HEMATOCRIT 25.2 % (37.0-47.0); HEMOGLOBIN 8.1 g/dL (12.0-16.0); MCH 26.8 PG (27-31); MCHC 32.1 g/dL (33-37); MCV 83.4 FL (81-99); RBC 3.02 XMIL (4.2-5.4)
[2017-07-06] MEDS ORDERED: LR 1,000 ML IV SCH (07:59)
[2017-07-06] MEDS: LIALDA PO SCH ×2 (08:12→17:36)
[2017-07-06] MEDS: LOPRESSOR PO SCH ×2 (09:12→20:55)
[2017-07-06] MEDS: PRECARE PO SCH (09:12)
[2017-07-06] MEDS: MYLICON PO SCH ×4 (09:12→20:55)
[2017-07-06] MEDS ORDERED: VASELINE TOP PRN (09:33)
[2017-07-06] MEDS: PERCOCET-10 PO PRN ×2 (10:52→15:17)
[2017-07-06] MEDS: MOTRIN PO PRN ×2 (10:53→18:02)
[2017-07-06] MEDS: PERICOLACE PO SCH (20:55)
[2017-07-07] MEDS: MOTRIN PO PRN (04:35)
[2017-07-07] MEDS: PERCOCET-10 PO PRN ×3 (04:35→15:17)
[2017-07-07] MEDS: LIALDA PO SCH (08:39)
[2017-07-07] MEDS: PRECARE PO SCH (08:39)
[2017-07-07] MEDS: LOPRESSOR PO SCH (08:39)
[2017-07-07] MEDS: MYLICON PO SCH ×2 (08:39→13:42)
[2017-07-07 11:44] VITALS: BP 142/83
== END 2017-07-07 17:00 | disposition home or self-care (01) ==
LOC: P.LD 05:04 → P.WC 15:07
PROVIDERS: ADMIT Obstetrics & Gynecology; ATTEND Obstetrics & Gynecology